=== PATIENT | male | born 1965 | race Caucasian/White ===

== ENCOUNTER 2020-08-06 14:08 | Emergency (ER) | payer BC ==
[2020-08-06] MEDS ORDERED: Ketorolac Tromethamine 30 MG/ML VIAL ONE (14:26)
== END 2020-08-06 17:50 | disposition home or self-care (01) ==
LOC: ERS 14:08
DX: M79.605 Pain in left leg (principal); R25.2 Cramp and spasm
CPT/HCPCS: 93005; 96372; J1885